=== PATIENT | male | born 1955 | race Caucasian/White ===

== ENCOUNTER 2020-07-03 14:59 | Emergency (ER) | payer MEDICARE, MEDICAID ==
[~2020-07-03] VITALS: Ht 175.3 cm; Wt 76.5 kg
--- NOTE | 2020-07-03 15:42 | NUR ---
PATIENT WALKED BACK FROM [facility] WITH CHIEF C/O LOW BP. PATIENT WAS AT PCP'S OFFICE EARLIER AND BP WAS 88/52, PCP SENT PATIENT TO ED. PATIENT REPORTS FEELING "DIZZY TODAY." NADN, PATIENT ACCOMPANIED BY CAREGIVER, LOREN. BP AT THIS TIME IS 126/71.
[2020-07-03 16:11] LABS: BASOPHILS % (AUTO) 1 % (0-1); EOSINOPHILS % (AUTO) 2 % (1-7); LYMPHOCYTES % (AUTO) 25 % (22-44); MEAN CORPUSCULAR HEMOGLOBIN 33.4 pg (27.5-34.5); MEAN CORPUSCULAR HGB CONC 34.2 g/dL (33.2-36.2); MEAN PLATELET VOLUME 8.2 fL (7.4-10.4); MONOCYTES % (AUTO) 8 % (2-9); NEUTROPHILS % (AUTO) 64 % (42-75); PLATELET COUNT 279 x10^3/uL (130-400); RED BLOOD COUNT 4.08 x10^6/uL (4.38-5.82); RED CELL DISTRIBUTION WIDTH 12.6 % (9.4-14.8)
--- NOTE | 2020-07-03 16:14 | NUR ---
ERMD AT BEDSIDE FOR EVALUATION.
[2020-07-03 16:19] LABS: ALBUMIN 3.7 g/dL (3.4-5.0); ANION GAP 2 mmol/L (5-15); CALCIUM 9.3 mg/dL (8.5-10.1); CHLORIDE 110 mmol/L (98-107)
[2020-07-03 16:30] LABS: ALANINE AMINOTRANSFERASE 43 U/L (12-78); ALKALINE PHOSPHATASE 66 U/L (45-117); BILIRUBIN,TOTAL 0.8 mg/dL (0.2-1.0); CREATININE 0.91 mg/dL (0.7-1.3); MD NO; TOTAL PROTEIN 6.9 g/dL (6.4-8.2); TROPONIN I < 0.015 ng/mL (0.000-0.045)
--- NOTE | 2020-07-03 16:41 | NUR ---
PATIENT PACING AROUND ROOM, NADN, CALL LIGHT WITHIN REACH. WAITING FOR TEST RESULTS.
[2020-07-03 17:14] VITALS: BP 114/64
--- NOTE | 2020-07-03 17:15 | NUR ---
CAREGIVER, LOREN CALLED TO COME GET PATIENT, SHE IS ON HER WAY.
--- NOTE | 2020-07-03 17:34 | NUR ---
Patient's caregiver, Jayla given discharge instructions and copy of lab work for PCP and they have confirmed that they understand the instructions. Patient ambulatory with steady gait from ED with caregiver.
== END 2020-07-03 17:35 | disposition home or self-care (01) ==
LOC: ED 17:25
DX: I95.9 Hypotension, unspecified (principal); R94.31 Abnormal electrocardiogram [ECG] [EKG]; I45.10 Unspecified right bundle-branch block; F17.200 Nicotine dependence, unspecified, uncomplicated
CPT/HCPCS: 36415; 80053; 84436; 84481; 84484; 85025; 93005; 99284

== ENCOUNTER → 2020-07-03 | Outpatient (CLI) | payer MEDICARE, MEDICAID | END | disposition home or self-care (01) | LOC: CFH 09:15 | PROVIDERS: ATTEND Internal Medicine | DX: Z12.2 Encounter for screening for malignant neoplasm of respiratory organs (principal); R91.1 Solitary pulmonary nodule; Z00.00 Encounter for general adult medical examination without abnormal findings; Z87.891 Personal history of nicotine dependence | CPT/HCPCS: 71271 ==

== ENCOUNTER → 2020-09-12 | Outpatient (CLI) | payer MEDICARE, MEDICAID ==
[~2020-09-12] MED LIST: ASCO100018 PO; ATOR10TA9 PO; CALC1CAP8 PO; LITH300C PO; LITH300T3 PO; OLAN10TA9 PO; RISP4TAB66 PO; TAMS-11 PO; VITA400C43 PO
[2020-09-12 12:19] LABS: MICROSCOPIC NOT IND
== END | disposition home or self-care (01) ==
LOC: STAR 10:28
PROVIDERS: ATTEND Colon & Rectal Surgery
DX: Z01.812 Encounter for preprocedural laboratory examination (principal); K40.90 Unilateral inguinal hernia, without obstruction or gangrene, not specified as recurrent; Z20.822 Contact with and (suspected) exposure to COVID-19
CPT/HCPCS: 81003; U0003

== ENCOUNTER 2020-09-18 06:23 | Day surgery (SDC) | payer MEDICARE, MEDICAID ==
[~2020-09-18] VITALS: Ht 175.3 cm; Wt 78.8 kg
[2020-09-18] MEDS ORDERED: BUPIVACAINE/PF 0.5% ONE (06:46)
[2020-09-18] MEDS ORDERED: EPINEPHRINE 1 MG/ML, 1ML ONE (06:46)
[2020-09-18] MEDS ORDERED: FENTANYL PF 250 MCG/5ML ONE (06:58)
[2020-09-18] MEDS ORDERED: MIDAZOLAM 1 MG/ML, 2ML ONE (06:58)
[2020-09-18 07:10] VITALS: BP 126/74
[2020-09-18] MEDS ORDERED: ONDANSETRON 2MG/ML, 2ML IVPush PRN (07:30)
[2020-09-18] MEDS ORDERED: EPHEDRINE 50 MG/ML, 1ML IVPush PRN (07:30)
[2020-09-18] MEDS ORDERED: LACTATED RINGERS 1,000 ML IV SCH (07:30)
[2020-09-18] MEDS ORDERED: METOPROLOL 1 MG/ML, 5ML IV PRN (07:30)
[2020-09-18] MEDS ORDERED: CHLORHEXIDINE 15 ML UDC PO ONE (07:30)
[2020-09-18] MEDS ORDERED: ACETAMINOPHEN 325 MG TABLET PO PRN (07:30)
[2020-09-18] MEDS ORDERED: OXYcodone 5 MG/5 ML ORAL.SOL UDC PO PRN (07:30)
[2020-09-18] MEDS ORDERED: hydrALAzine 20 MG/ML, 1ML IV PRN (07:30)
[2020-09-18] MEDS ORDERED: FENTANYL PF 100 MCG/2ML IV PRN (07:30)
[2020-09-18] MEDS ORDERED: METOCLOPRAMIDE 5 MG/ML, 2ML IVPush PRN (07:30)
[2020-09-18] MEDS ORDERED: HYDROmorphone 1 MG/ML, 1ML INJ IVPush PRN (07:30)
[2020-09-18] MEDS ORDERED: LABETALOL 5MG/ML, 20ML IV PRN (07:30)
[2020-09-18] MEDS ORDERED: DIPHENHYDRAMINE 50 MG/ML, 1ML IVPush PRN (07:30)
[2020-09-18] MEDS ORDERED: ALBUTEROL SULFATE 2.5 MG/3 ML NPPB PRN (07:30)
[2020-09-18] MEDS ORDERED: HALOPERIDOL 5 MG/ML IV PRN (07:30)
[2020-09-18] MEDS ORDERED: DIAZEPAM 5 MG/ML, 2ML IVPush PRN (07:30)
[2020-09-18] MEDS ORDERED: ALBUTEROL/IPRATROPIUM 2.5MG/0.5MG, 3 ML NPPB PRN (07:30)
[2020-09-18] MEDS ORDERED: ONDANSETRON 2MG/ML, 2ML ONE (07:34)
[2020-09-18] MEDS ORDERED: NEOSTIGMINE 1 MG/ML, 10ML ONE (07:34)
[2020-09-18] MEDS ORDERED: DEXAMETHASONE 4 MG/ML, 1ML ONE (07:34)
[2020-09-18] MEDS ORDERED: CEFAZOLIN 1,000 MG ONE (07:34)
[2020-09-18] MEDS ORDERED: PHENYLEPHRINE 10 MG/ML ONE (07:34)
[2020-09-18] MEDS ORDERED: ROCURONIUM 10 MG/ML,10ML ONE (07:34)
[2020-09-18] MEDS ORDERED: GLYCOPYRROLATE 0.2MG/1ML, 5ML ONE (07:34)
[2020-09-18] MEDS ORDERED: PROPOFOL 10 MG/ML, 20ML ONE (07:34)
== END 2020-09-18 11:00 | disposition home or self-care (01) ==
LOC: OUT 06:23
PROVIDERS: ATTEND Colon & Rectal Surgery
DX: K40.90 Unilateral inguinal hernia, without obstruction or gangrene, not specified as recurrent (principal); I10 Essential (primary) hypertension; F31.9 Bipolar disorder, unspecified; E11.9 Type 2 diabetes mellitus without complications; J44.9 Chronic obstructive pulmonary disease, unspecified; N40.0 Benign prostatic hyperplasia without lower urinary tract symptoms; Z79.84 Long term (current) use of oral hypoglycemic drugs; Z88.8 Allergy status to other drugs, medicaments and biological substances
CPT/HCPCS: 49650; C1727; C1781; J0171; J0690; J1100; J2250; J2370; J2405; J2704; J2710; J3010; J7120